=== PATIENT | female | born 1960 | race Caucasian/White ===

== ENCOUNTER 2023-05-22 18:28 | Emergency (ER) | payer BC, SELFPAY ==
[2023-05-22] VITALS (7 sets, daily range): BP systolic 127–154; BP diastolic 78–96; PULSE 67–84; RESP 14–21; TEMP 36.6–36.8; O2SAT 95–98; BMI 25.0
--- NOTE | 2023-05-22 18:26 | ECG_ITS ---
APPROVED REPORT Exam: Resting ECG HR:73 bpm ECG Measurements Heart Rate 73 AXES HI 181 P 52 QRSd 101 QRS -23 QT 365 T 38 QTc 391 Conclusion SINUS RHYTHM LOW QRS VOLTAGE IN PRECORDIAL LEADS [QRS DEFLECTION < 1.0 mV IN CHEST LEADS] POSSIBLE ANTERIOR MYOCARDIAL INFARCTION , PROBABLY OLD [30 ms Q WAVE IN V3/V4, OR R < 0.2 mV IN V4] INFERIOR MYOCARDIAL INFARCTION , PROBABLY OLD [40+ ms Q WAVE AND/OR ST/T ABNORMALITY IN II/aVF] ABNORMAL ECG UNCONFIRMED REPORT Electronically signed by : Jimbo Chong MD 05/24/2023 21:39:09
--- NOTE | 2023-05-22 18:54 | XR_ITS ---
PROCEDURE INFORMATION: Exam: XR Chest Exam date and time: 05/22/2023 6:56 PM Age: 62 years old Clinical indication: Sternal or substernal pain; Additional info: Chest pain TECHNIQUE: Imaging protocol: Radiologic exam of the chest. Views: 1 view. COMPARISON: No relevant prior studies available. FINDINGS: Lungs: There is mild elevation the right hemidiaphragm. The lungs appear clear. No focal areas of consolidation. Pleural spaces: No pleural effusions. Negative for pneumothorax. Heart/Mediastinum: Cardiac silhouette and pulmonary vasculature are within range of normal. Bones/joints: There is no evidence of acute fracture. The thoracic spine demonstrates mild degenerative changes at multiple levels. Mild degenerative changes involve the acromioclavicular joints bilaterally. IMPRESSION: Negative for an acute cardiopulmonary abnormality.
--- NOTE | 2023-05-22 19:00 | PC.NURSE ---
rad at BS for portable xray
[2023-05-22 19:08] LABS: Basophils # 0.1 K/mm3 (0-0.2); Basophils % 0.8 % (0.1-2.0); Eosinophils # 0.1 K/mm3 (0.0-0.4); Hematocrit 47.7 % (37.0-47.0); Hemoglobin 15.5 g/dL (12.2-16.2); Lymphocytes # 1.5 K/mm3 (0.7-4.5); Lymphocytes % 20.9 % (10-50); Mean Corpuscular HGB Conc 32.5 g/dL (31.8-35.4); Mean Corpuscular Hemoglobin 28.9 pg (27.0-31.2); Mean Corpuscular Volume 88.8 fl (81-99); Mean Platelet Volume 8.5 fl (7.4-10.4); Monocytes # 0.5 K/mm3 (0.1-1.0); Monocytes % 6.8 % (1.7-9.3); Neutrophils # 5.1 K/mm3 (1.8-7.8); Neutrophils % 70.4 % (37.0-80.0); Platelet Count 405 K/mm3 (142-424); Red Blood Count 5.37 M/mm3 (4.20-5.40); Red Cell Distribution Width 15.2 % (11.5-17.5); White Blood Count 7.3 K/mm3 (4.8-10.8)
--- NOTE | 2023-05-22 19:10 | PC.NURSE ---
is in the room talking with patient at this time.
[2023-05-22 19:14] LABS: Alanine Aminotransferase 29 U/L (12-78); Albumin Level 4.5 g/dl (3.5-5.0); Albumin/Globulin Ratio 1.4 (1.1-1.8); Alkaline Phosphatase 104 U/L (38-126); Anion Gap 10.7 mEq/L (5-15); Aspartate Amino Transferase 39 U/L (14-36); Bilirubin,Total 0.4 mg/dl (0.2-1.3); Blood Urea Nitrogen 24 mg/dl (7-17); Calcium 9.7 mg/dl (8.4-10.2); Carbon Dioxide 30 mmol/L (22.0-30.0); Chloride 107 mmol/L (98-107); Creatinine Clearance Estimated 63 mL/min (50-200); Estimated Glomerular Filt Rate 56 ml/min (>60); GFR (African American) 68 ML/MIN (>60); Globulin 3.3 g/dL (1.3-3.2); Glucose 115 mg/dl (74-100); Potassium 3.7 mmoL/L (3.5-5.1); Sodium 144 mmol/L (136-145); Total Protein,Serum 7.8 g/dl (6.3-8.2)
--- NOTE | 2023-05-22 19:15 | HMH.EDGENADL ---
Discharge Plan Disposition Chief Complaint: Chest Pain Prescriptions Prescriptions: No Action multivitamin Tablet 1 tab PO DAILY lisinopril-hydrochlorothiazide 20-25 mg tablet 1 tab PO DAILY Patient Comments: TAKE 1 TABLET BY MOUTH EVERY DAY TO IMPROVE BLOOD PRESSURE Referrals Follow up/Referrals: Reinier Wade [Primary Care Provider] - See instructions Juarez Wong MD [Staff Physician] - See instructions Clinical Impressions Clinical Impression: Chest pain Discharge ED Provider: Cleveland Rocha General Adult HPI General Chief complaint: Chest Pain Stated complaint: chest pain Time Seen by Provider: 05/22/23 19:10 Mode of Arrival: Ambulatory Source of Information: Patient Limitations: No Limitations Description of Symptoms (Recalled from ER Triage Doc. by RN): 62 F presents with no current complaints; however, around noon today she experienced a sudden onset of midsternal squeezing to her heart. Patient denies having any other ACS symptoms; however, if she could've got to her phone she would've called 911 because it was pretty bad. Patient states after the 10 minutes she did not have anymore pain and went on with her work day. Patient denies history of cardiac issues. History of Present Illness HPI narrative: Patient is a 62-year-old female presenting with chest pain. She has a history of hypertension but no other medical problems specifically no history of any coronary disease. She was out in the heat today and had 10 minutes of squeezing chest pain without radiation or shortness of breath or diaphoresis that spontaneously resolved she is currently asymptomatic. Her family members made her come in today. Related Data Home Medications Medication Instructions Recorded Confirmed lisinopril 20 1 tab PO DAILY High Blood Pressure 05/22/23 05/22/23 mg-hydrochlorothiazide 25 mg tablet multivitamin 1 tab PO DAILY Supplement 05/22/23 05/22/23 Allergies Allergy/AdvReac Type Severity Reaction Status Date / Time No Known Allergies Allergy Verified 05/22/23 18:42 [facility] Disclaimer: The information contained in this section may have been updated after the patient was seen, as this information can be updated by other users. Medical History (Updated 05/22/23 @ 19:18 by Cleveland Rocha MD) HTN (hypertension) Social History Smoking Status: Never smoker alcohol intake: never current occupational status: other Travel in the last 8 weeks: None ROS Obtained: Yes All systems reviewed & no additional complaints except as documented Physical Exam General General appearance: alert Respiratory Respiratory exam: Present normal lung sounds bilaterally; Absent wheezes Cardiovascular Cardiovascular exam: Present regular rate; Absent tachycardia Neurological Exam Neurological exam: Present alert and oriented X3 Medical Decision Making Maxime Inquiry Pt receiving controlled substance: No Vital Signs: 05/22/23 18:28 05/22/23 19:00 05/22/23 19:14 Temperature 98.3 F Temperature Source Oral Pulse Rate 76 84 Pulse Rate [Left] 80 Respiratory Rate 19 Blood Pressure 150/93 H Blood Pressure [Right Arm] 154/96 H Blood Pressure Mean 112 Blood Pressure Mean [Right Arm] 115 Blood Pressure Source [Right Arm] Automatic Cuff Blood Pressure Position [Right Arm] Sitting 02 Sat by Pulse Oximetry 95 98 Oxygen Delivery Method Room Air Lab Data Lab Results 05/22/23 18:32: WBC 7.3, RBC 5.37, Hgb 15.5, Hct 47.7 H, MCV 88.8, MCH 28.9, MCHC 32.5, RDW 15.2, Plt Count 405, MPV 8.5, Neut % (Auto) 70.4, Lymph % (Auto) 20.9, Camp % (Auto) 6.8, Eos % (Auto) 1.0, Baso % (Auto) 0.8, Neut # (Auto) 5.1, Lymph # (Auto) 1.5, Camp # (Auto) 0.5, Eos # (Auto) 0.1, Baso # (Auto) 0.1 05/22/23 18:32 Orders (Tests/Meds): ORDERS Category Date Time Status CXR --portable [XR chest portable] Stat
[2023-05-22 19:20] LABS: D-Dimer 0.64 ug/mL (0.0-0.5)
[2023-05-22 19:27] LABS: Troponin I < 0.01 ng/ml (0.00-0.034)
--- NOTE | 2023-05-22 19:45 | PC.NURSE ---
Rounded on patient, no concerns voiced at this time.
[2023-05-22 22:16] LABS: Troponin I < 0.01 ng/ml (0.00-0.034)
== END 2023-05-22 22:22 | disposition home or self-care (01) ==
PROVIDERS: Emergency Provider Student in an Organized Health Care Education/Training Program; PCP Family Medicine
DX: R07.9 Chest pain, unspecified (principal); I10 Essential (primary) hypertension
CPT/HCPCS: 71045; 80053; 84484; 85025; 85378; 93005; 99285

== ENCOUNTER → 2023-06-04 12:55 | Outpatient (CLI) | payer BC, SELFPAY ==
--- NOTE | 2023-06-04 | CA_ITS ---
APPROVED REPORT Exam: Exercise Treadmill Technologist: Shaista Bardales, Ht: 5 ft 4 in Wt: 189 lbs BSA: 1.91 m2 HR: 57 bpm BP: 148/88 mmHg Rhythm: SR Medical History Medical History: HTN Medications: Multivitamin,,,,, Lisinopril-Hydrochlorothiazide,,,,, Allergies: No known drug allergies Cardiac Risk Factors: HTN Stress Test Details Test: Carl HR Resting HR: 57 bpm Max Heart Rate (APMHR): 158 bpm Max HR Achieved: 155 bpm Target HR (85% APMHR): 134 bpm % of APMHR: 98 Recovery HR: 77 bpm HR response to stress: Normal HR response to stress BP Resting BP: 148.0/88 mmHg Max BP: 170/93 mmHg Recovery BP: 141.0/95.0 mmHg BP response to stress: Normal blood pressure response to stress. ECG Resting ECG: SR Stress ECG: < 0.[address] depression Arrhythmia: None Recovery ECG: Return to baseline within 3 minutes of recovery Recovery Arrhythmia: None Clinical Exercise duration: 08:32 min Highest Stage Achieved: Exercise capacity: 10.1 METs Overall Exercise Capacity for Age: Average Stress ECG Conclusion The patient was able to exercise for total of 8 minutes, 32 seconds. She achieved 10.1 METS. She has an average exercise capacity compared to age and sex matched peers. She has normal HR and BP response to exercise. MAX HR: 155 % OF PM: 98 MAX BP: 170/93 METS: 10.1 TEST STOPPED DUE TO: LEG FATIGUE PAC, PVC < 0.[address] DEPRESSION CONCLUSION NORMAL EKG RESPONSE TO EXERCISE MYOVIEW IMAGES ARE REPORTED SEPARATELY Test Summary REST . . . . . . . Sitting REST 03:10 0.0 1.2 57 . 148/ 88 . . Stage 1 01:00 10.0 1.7 76 . . . . Stage 1 02:00 10.0 1.7 89 . . . . Stage 1 03:00 10.0 1.7 92 . 150/ 80 . . Stage 2 01:00 12.0 2.5 106 . . . . Stage 2 02:00 12.0 2.5 108 . . . . Stage 2 03:00 12.0 2.5 115 . . . . Stage 3 01:00 14.0 3.4 140 . 160/ 90 . . Stage 3 . . . . . . . Myoview Injected Stage 3 02:00 14.0 3.4 150 . 160/ 90 . . Stage 3 02:32 14.0 3.4 155 . 160/ 90 . Stop exercise at 08:32 RECOVERY 01:00 0.0 0.0 121 . 165/ 94 . . RECOVERY 02:00 0.0 0.0 85 . 165/ 94 . . RECOVERY 03:00 0.0 0.0 84 . 159/ 96 . . RECOVERY 04:00 0.0 0.0 80 . 170/ 93 . . RECOVERY 04:42 0.0 0.0 79 . 141/ 95 . . Electronically signed by : Marychuy Rutledge, 06/05/2023 08:47:29
--- NOTE | 2023-06-04 12:55 | NM_ITS ---
APPROVED REPORT Exam: Nuclear Stress Test Indication: chest pain..palpitations..fatigue Patient Location: Outpatient Stress Tech: Shaista Bardales AR Tech:Afua Vega NANETTECathy RT(R)(N) Ht: 5 ft 7 in Wt: 189 lbs Bra Size: 36dd HR: 57 bpm BP: 148/88 mmHg BSA: 1.97 m2 Rhythm: NSR TID: 1.19 BMI: 29.5 History: chest pain..palpitations..fatigue Procedure: Patient exercised on Carl protocol 8:32 minutes and sec, resting heart rate 57 bpm, resting blood pressure 148/88 mmHg, with exercise maximum heart rate achived was 155 bpm which is 98 % of the maximum predicted heart rate and blood pressure was 170/93 mmHg. Patient denied any complaint of chest pain. Patient has average exercise capacity, achieved 10.1 METs of workload on treadmill, the blood pressure response to exercise was normal. Cardiac Stress and Resting SPECT Images: Cardiac Stress and Resting SPECT images were obtained using technetium 99m Myoview 32.1 mCi stress and 10.24 mCi at rest. Resting and stress imaging in supine position demonstrate a medium sized, mild, fixed perfusion defect in the basal to mid anterior wall. This is no longer visualized when prone stress imaging is performed. Findings are most suggestive of soft tissue artifact. Gated imaging demonstrates normal global and regional LV systolic function. LVEF is calculated at 58%. Conclusion: Soft tissue attenuation is present. No definite fixed or reversible perfusion defects Gated imaging demonstrates normal global and regional LV systolic function. LVEF is calculated at 58%. Electronically signed by : Marychuy Rutledge, 06/05/2023 08:51:06
== END ==
LOC: RAD 12:55
PROVIDERS: PCP Family Medicine; Visit Provider Nurse Practitioner Family
DX: R07.9 Chest pain, unspecified (principal); R42 Dizziness and giddiness; I10 Essential (primary) hypertension; R94.31 Abnormal electrocardiogram [ECG] [EKG]
CPT/HCPCS: 78452; 93017; A9502

== ENCOUNTER → 2023-06-08 12:35 | Outpatient (CLI) | payer BC, SELFPAY ==
--- NOTE | 2023-06-08 12:40 | CT_ITS ---
FINAL REPORT CLINICAL HISTORY: cp/elevated d dimer FINDINGS: CTA CHEST WITH CONTRAST TECHNIQUE: Thin section axial CT with IV contrast supplemented with 3D reconstructed MIP images. FINDINGS: Pulmonary vessels enhance in a normal fashion without evidence of embolic disease. Thoracic aorta is normal in caliber without evidence of aneurysm or dissection. No acute lung disease is present . No pleural or pericardial effusion is seen . No adenopathy or mass lesion is present . IMPRESSION: 1. No evidence of pulmonary embolism. Reviewed, Interpreted and Dictated by Tessa Mccollum MD Transcribed by Brittany Carias Authenticated and [facility]
== END ==
LOC: RAD 12:35
PROVIDERS: PCP Family Medicine; Visit Provider Nurse Practitioner Family
DX: R07.9 Chest pain, unspecified (principal); R42 Dizziness and giddiness; I10 Essential (primary) hypertension; R79.89 Other specified abnormal findings of blood chemistry; R94.31 Abnormal electrocardiogram [ECG] [EKG]
CPT/HCPCS: 71275; Q9967

== ENCOUNTER → 2023-06-14 10:50 | Outpatient (CLI) | payer BC, SELFPAY ==
--- NOTE | 2023-06-14 10:54 | CA_ITS ---
APPROVED REPORT EXAM: Comprehensive 2D, Doppler, and color-flow Echocardiogram Bolt Sorter: Leslye Swan RVT Ht: 5 ft 4 in Wt: 189lbs BSA: 1.91 BP: 130/93 mmHg Indications: CP,ELEVATED D-DIMER,ABN EKG,HTN 2D Dimensions LVOT 2.00 cm (M/F) 1.5-2.5 LA Volume 48.20 mL LA Volume Index 25.24 mL/m2 (M/F) 16-34 M-Mode Dimensions RVDd 3.04 cm (0.9-2.6) LA Diam 3.79 cm (1.9-4.0) LVDd 4.07 cm (3.5-5.7) Ao Diam 2.99 cm (2.0-3.7) LVDs 2.62 cm (3.5-5.7) IVSd 0.84 cm (0.6-1.1) PWd 0.87 cm (0.6-1.1) EF (Teich) 65.60% FS 35.60% EDV (Teich) 72.90 mL TAPSE 2.54 (<1.7) ESV (Teich) 25.10 mL LV Diastology E Decel Time 217.00 (160-240 msec) E/A Ratio 0.9 MED E' 9.80 (< 7 cm/sec) E'/MED E' Ratio 8.63 (>14) LAT E' 7.90 (<10 cm/sec) E/LAT E' Ratio 10.71 (>14) Aortic Valve AO Peak GR. 9.10 mmHg Mitral Valve MV E Max Kaushal. 85.00 (40-130 cm/s) MV A Velocity 95.00 (40-130 cm/s) E/A Ratio 0.89 MV Decel. Time 217.00 (160-240 ms) MV PHT 63.00 ms Pulmonary Valve PV Peak Velocity 79.00 (50-150 cm/s) Tricuspid Valve TR P. Velocity 226.00 cm/s RAP Estimate 10.00 mmHg RVSP 30.40 mmHg Left Ventricle The left ventricle is normal size. The left ventricular systolic function is normal. The left ventricular ejection fraction is within the normal range. There is proximal septal thickening present. There is normal LV segmental wall motion. Transmitral Doppler flow pattern suggests impaired LV relaxation. LVEF is 65%. Right Ventricle The right ventricle is mildly dilated. The right ventricular systolic function is normal. Atria The left atrium size is normal. The right atrium size is normal. There is no Doppler evidence of interatrial shunt. Aortic Valve The aortic valve is trileaflet. The aortic valve opens well. There is no aortic valvular stenosis. Trace aortic regurgitation. Mitral Valve The mitral valve is normal in structure. No evidence of mitral valve stenosis. Trace mitral regurgitation. Tricuspid Valve The tricuspid valve leaflets are thin and pliable. Trace tricuspid regurgitation. RVSP is 20-25 mmHg. Pulmonic Valve The pulmonary valve is normal in structure. Trace pulmonic regurgitation. Great Vessels The aortic root is normal in size. The ascending aorta is normal in size. IVC is normal in size and collapses >50% with inspiration. Pericardium There is no pericardial effusion. Other Information Study Quality: Adequate Conclusion Normal biventricular systolic function. Mild RV dilation. No significant valvular disease. Electronically signed by : Marychuy Rutledge, 06/15/2023 16:43:37
== END ==
LOC: RT 10:50
PROVIDERS: PCP Family Medicine; Visit Provider Nurse Practitioner Family
DX: R07.9 Chest pain, unspecified (principal); R42 Dizziness and giddiness; I10 Essential (primary) hypertension; R94.31 Abnormal electrocardiogram [ECG] [EKG]
CPT/HCPCS: 93306

== ENCOUNTER 2024-11-03 15:42 | Emergency (ER) | payer BC, MEDICAID, SELFPAY ==
--- NOTE | 2024-11-03 16:38 | EXP.UTC ---
Discharge Plan Disposition Patient Disposition: Home, Self-Care Condition: Good Prescriptions Prescriptions: New amoxicillin 875 mg tablet 875 mg PO Q12H Qty: 20 0RF benzonatate 100 mg capsule 100 mg PO TIDP PRN (Reason: Cough) Qty: 30 0RF No Action jijbxhwr-xrtk-npyrn-oreg-capry 100 mg-150 mg- 50 mg-150 mg capsule PO multivitamin Tablet 1 tab PO DAILY lisinopril-hydrochlorothiazide 20-25 mg tablet 1 tab PO DAILY Patient Comments: TAKE 1 TABLET BY MOUTH EVERY DAY TO IMPROVE BLOOD PRESSURE Referrals Follow up/Referrals: Reinier Wade [Primary Care Provider] - See instructions Activity Restrictions/Add. Instructions Additional Instructions/Restrictions: Drink plenty of fluids. Take tylenol or ibuprofen for pain or fever. Take the medications as directed. Follow up with your regular doctor. GO TO THE ER FOR ANY WORSENING SYMPTOMS Clinical Impressions Clinical Impression: Bronchitis, Acute viral syndrome Instructions Patient Instructions: Acute Bronchitis, DI for Acute Bronchitis Print Language Print Language: Bengali Discharge ED Provider: Valente Laurent [facility] General Stated complaint: Body aches,cough Time Seen by Provider: 11/03/24 16:38 Related Data Home Medications ?Medication ?Instructions ?Recorded ?Confirmed lisinopril 20 1 tab PO DAILY High Blood Pressure 05/22/23 11/03/24 mg-hydrochlorothiazide 25 mg tablet multivitamin 1 tab PO DAILY Supplement 05/22/23 06/20/23 turmeric 100 mg-teresa 150 cap PO 05/31/23 06/20/23 mg-olive 50 mg-oreg 150 mg-capryl capsule Previous Rx's ?Medication ?Instructions ?Recorded amoxicillin 875 mg tablet 875 mg PO Q12H #20 tabs 11/03/24 benzonatate 100 mg capsule 100 mg PO TIDP PRN Cough #30 caps 11/03/24 Allergies Allergy/AdvReac Type Severity Reaction Status Date / Time No Known Allergies Allergy Verified 06/20/23 15:50 [facility] Disclaimer: The information contained in this section may have been updated after the patient was seen, as this information can be updated by other users. Medical History (Updated 11/03/24 @ 17:18 by Valente Laurent APRN) Elevated d-dimer Abnormal electrocardiogram [ECG] [EKG] Dizziness Chest pain HTN (hypertension) Social History Smoking Status: Never smoker alcohol intake: never current occupational status: other Travel in the last 8 weeks: None Have you lived/traveled outside [place] in past 30 days?: No Contact w/someone who lives/traveled outside US past 30 days?: No Exposure to someone with infectious disease in past 14 days?: No Do you have a fever (greater than 100.4 F or 38 C)?: No Have you tested positive for COVID-19: No Exposed to someone with COVID-19 in past 14 days?: No Do you have a sore throat?: No Do you have a cough?: Yes Do you have any weakness?: No Do you have any diarrhea?: No Are you experiencing any unusual bleeding?: No Do you have any muscle aches/pain?: Yes Do you have any abdominal pain?: No Are you experiencing loss of taste or smell?: No ROS Obtained: Yes All systems reviewed & no additional complaints except as documented Constitutional Constitutional: Reports poor appetite Eyes Eyes: Reports system reviewed and no additional complaints, except as documented ENT Ears, Nose, Mouth, and Throat: Reports as per HPI Cardiovascular Cardiovascular: Reports system reviewed and no additional complaints, except as documented and Denies chest pain Respiratory Respiratory: Denies shortness of breath, Reports chest congestion, Reports cough, Denies stridor and Denies wheezing Gastrointestinal Gastrointestingal: Reports system reviewed and no additional complaints, except as documented; Denies abdominal pain, diarrhea or vomiting Musculoskeletal Musculoskeletal: Reports system reviewed and no additional complaints, except as documented and Denies arthralgias Integumentary/Breasts Skin/Breast: Reports system reviewed and no additional complaints, except as documented and Denies rash Neurologic Neurologic: Denies paresthesias Allergic/Immunologic Allergic/Immunologic: Denies wheezing Physical Exam General General appearance: alert and in no apparent distress Eye Eye exam: Present normal appearance, PERRL and EOMI ENT ENT exam: Present mucous membranes moist and normal external ear exam Expanded ENT Exam External ear exam: Present normal external inspection TM/Canal exam: Bilateral TM: erythema and bulging Nose exam: Absent sinus tenderness Nasal speculum exam: Bilateral: normal Mouth exam: Present normal external inspection; Absent drooling Teeth exam: Present normal inspection Throat exam: Present tonsillar erythema and tonsillomegaly Neck Neck exam: Present normal inspection, full ROM and trachea midline; Absent tenderness, lymphadenopathy or thyromegaly Chest Chest inspection: Present normal inspection and symmetric chest wall rise; Absent tenderness or rash Respiratory Respiratory exam: Present normal lung sounds bilaterally; Absent respiratory distress, wheezes, stridor or accessory muscle use Cardiovascular Cardiovascular exam: Present regular rate, normal rhythm and normal heart sounds Abdominal Exam Abdominal exam: Present soft; Absent distention, tenderness, guarding, rebound or rigidity Extremities Exam Extremities exam: Present normal inspection, full ROM and normal capillary refill; Absent tenderness or calf tenderness Back Exam Back exam: Present normal inspection and full ROM; Absent tenderness Neurological Exam Neurological exam: Present alert and oriented X3 Psychiatric Psychiatric exam: Present normal affect and normal mood Skin Skin exam: Present warm, dry, intact and normal color Lymphatic Lymphatic Findings: no adenopathy Medical Decision Making Medical Records Medical records reviewed: No I reviewed the patient's medical records. Screening: Per USPSTF and CDC recommendations, given the prevalence of disease in our region, it is our hospital?s policy to screen for HIV and viral Hepatitis for all patients aged 18 and over and those with ongoing risk factors. Maxime Inquiry Pt receiving controlled substance: No Lab Data Lab results reviewed: Yes I reviewed the patient's lab results.
[2024-11-03 16:39] VITALS: BP 166/101; PULSE 83; RESP 95; TEMP 36.7; O2SAT 95; BMI 34.1
[2024-11-03 17:27] VITALS: BP 166/101; PULSE 83; RESP 20; TEMP 36.7
[2024-11-03 17:32] LABS: Coronavirus 19, PCR Not Detected (NotDetected); Influenza A, PCR Not Detected (NotDetected); Influenza B, PCR Not Detected (NotDetected)
[2024-11-03 17:52] LABS: RSV Rapid Ab Screen Negative (Negative)
== END 2024-11-03 17:33 | disposition home or self-care (01) ==
PROVIDERS: Emergency Provider Nurse Practitioner Family; PCP Family Medicine
DX: J20.9 Acute bronchitis, unspecified (principal); B34.9 Viral infection, unspecified; R05.9 Cough, unspecified; R63.8 Other symptoms and signs concerning food and fluid intake
CPT/HCPCS: 87636; 87807; 99212; G0381

== ENCOUNTER 2025-04-30 11:49 | Emergency (ER) | payer BC, MEDICAID, SELFPAY ==
[2025-04-30] VITALS (7 sets, daily range): BP systolic 126–180; BP diastolic 79–100; PULSE 54–67; RESP 14–27; TEMP 36.6–37.1; O2SAT 91–97; BMI 34.7
--- NOTE | 2025-04-30 12:00 | ECG_ITS ---
APPROVED REPORT Exam: Resting ECG HR:60 bpm ECG Measurements Heart Rate 60 AXES NE 165 P 73 QRSd 99 QRS 2 QT 427 T 61 QTc 427 Conclusion SINUS RHYTHM LOW QRS VOLTAGE IN PRECORDIAL LEADS [QRS DEFLECTION < 1.0 mV IN CHEST LEADS] POSSIBLE ANTERIOR MYOCARDIAL INFARCTION , PROBABLY OLD [30 ms Q WAVE IN V3/V4, OR R < 0.2 mV IN V4] BORDERLINE ECG UNCONFIRMED REPORT Electronically signed by : Valente Rocha, 04/30/2025 15:38:39
--- NOTE | 2025-04-30 12:05 | XR_ITS ---
FINAL REPORT CLINICAL HISTORY: upper abd. pain COMPARISON: 05/22/2023 FINDINGS: The heart size is normal. The mediastinum is normal. There is no focal infiltrate or edema. There are no pleural effusions. There is no pneumothorax. There is no osseous abnormality. IMPRESSION: No acute cardiopulmonary process Reviewed, Interpreted and Dictated by Wisam Cleaning MD Transcribed by Shira Sidhu Authenticated and [facility]
[2025-04-30 12:12] LABS: Basophils # 0.1 K/mm3 (0-0.2); Basophils % 0.8 % (0.1-2.0); Eosinophils # 0.1 Kmm3 (0.0-0.4); Eosinophils % 0.8 % (0.1-12.0); Hematocrit 53.2 % (37.0-47.0); Hemoglobin 17.4 g/dL (12.2-16.2); Immature Granulocytes # 0.02 10^3uL; Immature Granulocytes % 0.3 %; Lymphocytes # 1.1 K/mm3 (0.7-4.5); Lymphocytes % 17.1 % (10-50); Mean Corpuscular HGB Conc 32.7 g/dL (31.8-35.4); Mean Corpuscular Hemoglobin 29.9 pg (27.0-31.2); Mean Corpuscular Volume 91.4 fl (81-99); Mean Platelet Volume 9.9 fl (7.4-10.4); Monocytes # 0.4 K/mm3 (0.1-1.0); Monocytes % 6.8 % (1.7-9.3); Neutrophils # 4.8 K/mm3 (1.8-7.8); Neutrophils % 74.2 % (37.0-80.0); Nucleated Red Blood Cells # 0 10^3/uL; Nucleated Red Blood Cells % 0 %; Platelet Count 421 K/mm3 (142-424); Red Blood Count 5.82 M/mm3 (4.20-5.40); Red Cell Distribution Width 16.1 % (11.5-17.5); Red Cell Distribution Width-SD 53.1 fL; White Blood Count 6.4 K/mm3 (4.8-10.8)
--- OUTSIDE RECORDS SUMMARY | 2025-04-30 12:17 | XMS_ITS ---
Author Organization Unknown Medications Medication Instructions Effective Dates (start - stop) Status amlodipine 10 MG Oral Tablet 12-24-11T00:00:00.000+00 :00 - Completed hydrochlorothiazide 25 MG / lisinopril 20 MG Oral Tablet [id number]:00:00.000+0 0 :00 - Completed hydrochlorothiazide 25 MG / lisinopril 20 MG Oral Tablet [id number]:00:00.000+0 0 :00 - Completed hydrochlorothiazide 25 MG / lisinopril 20 MG Oral Tablet [id number]:00:00.000+0 0 :00 - Completed hydrochlorothiazide 25 MG / lisinopril 20 MG Oral Tablet [id number]:00:00.000+0 0 :00 - Completed Patient Care team information Name Category Status Period Participants - - Proposed period not known -
[2025-04-30 12:24] LABS: Albumin Level 4.6 g/dl (3.5-5.0); Chloride 104 mmol/L (98-107); Sodium 139 mmol/L (136-145)
--- NOTE | 2025-04-30 12:24 | CT_ITS ---
FINAL REPORT TECHNIQUE: The patient was injected with IV contrast. Axial images were obtained through the chest in a PE protocol. 3-D reconstruction images were also performed. Individualized dose reduction techniques using automated exposure control or adjustment of the MA and/or KV according to patient's size were employed. CLINICAL HISTORY: Upper ABD pain/CP rating to back COMPARISON: None FINDINGS: Mediastinal vasculature is adequately opacified. No pulmonary artery filling defects are identified to suggest PE. There is no aortic dissection. There is no axillary adenopathy. There is no hilar or mediastinal adenopathy. The heart size is normal. There is no pericardial or pleural effusion. Limited images of the upper abdomen demonstrate a small hiatal hernia. There are mild ground glass opacities noted bilaterally, that may represent mild edema or pneumonitis. IMPRESSION: No pulmonary embolus or dissection. Ground glass opacities are noted bilaterally, that may represent mild edema or pneumonitis. Small hiatal hernia. Reviewed, Interpreted and Dictated by Wisam Cleaning MD Transcribed by Brittany Carias Authenticated and [facility]
--- NOTE | 2025-04-30 12:24 | CT_ITS ---
FINAL REPORT TECHNIQUE: After the administration of intravenous contrast, axial images were obtained through the abdomen and pelvis by computed tomography. The study was performed with techniques to keep radiation dose as low as reasonably achievable, (ALARA). Individual dose reduction techniques using automated exposure control or adjustment of mA and/or kV according to the patient's size were employed. CLINICAL HISTORY: Upper ABD pain/CP radiating to back COMPARISON: None FINDINGS: Abdomen: The lung bases are clear. There is fatty infiltration of the liver, and mild hepatosplenomegaly. The spleen measures 14 cm in the craniocaudal dimension, and the liver measures 19 cm in the craniocaudal dimension. The gallbladder is present. The spleen, pancreas, adrenals and kidneys appear unremarkable. The aorta is normal in caliber. There is no free fluid or adenopathy. Pelvis: The appendix is air-filled, and at the upper limits of normal in size. The urinary bladder is unremarkable. The uterus is bulky in appearance, with lobular/nodular masses in the uterus measuring up to 4 cm in size, likely representing fibroids. There is no free fluid or adenopathy. IMPRESSION: Mild hepatosplenomegaly, with fatty infiltration of the liver. Bulky uterus with multiple parenchymal masses, likely representing fibroids. Reviewed, Interpreted and Dictated by Wisam Cleaning MD Transcribed by Brittany Carias Authenticated and . [facility]
--- NOTE | 2025-04-30 12:25 | ED_ITS ---
<Statement entered by Cleveland Rocha MD - 04/30/25 15:32> I was consulted by the CASIE, and we discussed the complexity of the problems being addressed. I approved the treatment and management plan for this patient's care in the emergency department, thus performing a substantive portion of the medical decision making. Cleveland Rocha MD, ZULEIMA, FACEP Discharge Plan Disposition Patient Disposition: Home, Self-Care Condition: Good Prescriptions Prescriptions: No Action uohvtnkg-pkre-imhjw-oreg-capry 100 mg-150 mg- 50 mg-150 mg capsule PO multivitamin Tablet 1 tab PO DAILY lisinopril-hydrochlorothiazide 20-25 mg tablet 1 tab PO DAILY Patient Comments: TAKE 1 TABLET BY MOUTH EVERY DAY TO IMPROVE BLOOD PRESSURE amoxicillin 875 mg tablet 875 mg PO Q12H Qty: 20 0RF benzonatate 100 mg capsule 100 mg PO TIDP PRN (Reason: Cough) Qty: 30 0RF Referrals Follow up/Referrals: Reinier Wade [Primary Care Provider, Medical] - See instructions Nimo Leslie DO [Staff Physician, FLOW MANAGER] - See instructions Activity Restrictions/Add. Instructions Additional Instructions/Restrictions: Please return to the emergency department with any worsening signs or symptoms, utilize ibuprofen Tylenol and other anti-inflammatory medication as needed for symptomatic relief. Please follow-up with your women's health provider/primary care doctor regarding the incidental findings of uterine fibroids. Clinical Impressions Clinical Impression: Abdominal pain Chest pain Qualifiers: Chest pain type: unspecified Qualified Code(s): R07.9 - Chest pain, unspecified Instructions Patient Instructions: DI for Acute Abdominal Pain, DI for Atypical Chest Pain Print Language Print Language: Albanian Discharge ED Provider: Cleveland Rocha General Adult HPI General Chief complaint: Abdominal Pain Stated complaint: abd pain, going through shoulder blades x 2 weeks Time Seen by Provider: 04/30/25 12:09 Mode of Arrival: Ambulatory Source of Information: Patient Description of Symptoms (Recalled from ER Triage Doc. by RN): pt to the ED with upper adbominal pain that radiates to her middle back. pt reports this has been going on intermittenly for 2 weeks but is worse today. pt describes it as a stabbing pain and rates it as a 7 at this time History of Present Illness HPI narrative: 64-year-old female presents to the emergency department with upper abdominal pain,/chest pain that will radiate in between my shoulder blades , for the last 2 weeks, describes a gradually worsening, she denies any fever or chills, denies any shortness of breath currently, admits to cough, denies any nausea, no vomiting no constipation no diarrhea, no urinary type symptomatology, no melena, no hematochezia, no hematemesis, no hemoptysis, denies any trauma per history, no bending lifting twisting injury, patient is a non-smoker, denies any alcohol or drug use, other past medical history is consistent with hypertension otherwise unremarkable. Initial triage vitals unremarkable. Onset (ago): week(s) Related Data Home Medications ?Medication ?Instructions ?Recorded ?Confirmed lisinopril 20 1 tab PO DAILY High Blood Pr essure 05/22/23 11/03/24 mg-hydrochlorothiazide 25 mg tablet multivitamin 1 tab PO DAILY Supplement 06/20/23 turmeric 100 mg-teresa 150 cap PO 05/31/23 06/20/23 mg-olive 50 mg-oreg 150 mg-capryl capsule Previous Rx's ?Medication ?Instructions ?Recorded amoxicillin 875 mg tablet 875 mg PO Q12H #20 tabs 10/13 02/02 benzonatate 100 mg capsule 100 mg PO TIDP PRN Cough #3 0 caps 11/03/24 Allergies Allergy/AdvReac Type Severity Reaction Status Date / Time No Known Allergies Allergy Verified 06/20/23 15:50 [facility] Disclaimer: The information contained in this section may have been updated after the patient was seen, as this information can be updated by other users. Medical History (Updated 04/30/25 @ 14:11 by KARLA Mckay) Elevated d-dimer Abnormal electrocardiogram [ECG] [EKG] Dizziness Chest pain HTN (hypertension) Social History Smoking Status: Never smoker alcohol intake: never current occupational status: other Travel in the last 8 weeks?: None Have you lived/traveled outside [place] in past 30 days?: No Contact w/someone who lives/traveled outside [place] past 30 days?: No Exposure to someone with infectious disease in past 14 days?: No Do you have a fever (greater than 100.4 F or 38 C)?: No Have you tested positive for COVID-19?: No Exposed to someone with COVID-19 in past 14 days?: No Do you have a sore throat?: No Do you have a cough?: No Do you have any weakness?: No Do you have any diarrhea?: No Are you experiencing any unusual bleeding?: No Do you have any muscle aches/pain?: No Do you have any abdominal pain?: No Are you experiencing loss of taste or smell?: No ROS Obtained: Yes All systems reviewed & no additional complaints except as documented Physical Exam General General appearance: alert and in no apparent distress Head Head exam: atraumatic and normocephalic Eye Eye exam: Present PERRL and EOMI ENT ENT exam: Present mucous membranes moist Neck Neck exam: Present normal inspection Chest Chest inspection: Present normal inspection, symmetric chest wall rise, tenderness and other (Mild tenderness over the chest wall) Respiratory Respiratory exam: Present normal lung sounds bilaterally; Absent respiratory distress, wheezes or stridor Cardiovascular Cardiovascular exam: Present regular rate and normal rhythm Abdominal Exam Abdominal exam: Present soft and tenderness; Absent guarding, rebound or rigidity Abdominal tenderness: Present RUQ, RLQ, epigastrium and mild Comment: Mild diffuse abdominal tenderness to palpation to the RLQ RUQ and epigastrium, faintly positive Lopez sign. Extremities Exam Extremities exam: Present normal inspection Neurological Exam Neurological exam: Present alert and oriented X3 Psychiatric Psychiatric exam: Present normal affect Skin Skin exam: Present warm and dry Medical Decision Making Medical Records Medical records reviewed: Yes I reviewed the patient's medical records. Screening: Per USPSTF and CDC recommendations, given the prevalence of disease in our region, it is our hospital?s policy to screen for HIV and viral Hepatitis for all patients aged 18 and over and those with ongoing risk factors. Maxime Inquiry Pt receiving controlled substance: No Maxime was queried for this patient: No Vital Signs: 04/30/25 11:56 04/30/25 11:57 04/30/25 13:01 Temperature 97.9 F Temperature Source Oral Pulse Rate 67 59 L Pulse Rate [Left Radial] 60 Respiratory Rate 17 19 Blood Pressure 180/100 H 149/92 H Blood Pressure [Right Arm] 180/100 H Blood Pressure Mean [Right Arm] 126 Blood Pressure Source [Right Arm] Automatic Cuff Blood Pressure Position [Right Arm] Sitting 02 Sat by Pulse Oximetry 97 93 L 91 L Oxygen Delivery Method Room Air Lab Data Lab results reviewed: Yes I reviewed the patient's lab results. Lab Results 04/30/25 12:02: WBC 6.4, RBC 5.82 H, Hgb 17.4 H, Hct 53.2 H, MCV 91.4, MCH 29.9, MCHC 32.7, RDW 16.1, Plt Count 421, MPV 9.9, Neut % (Auto) 74.2, Lymph % (Auto) 17.1, Taliaferro % (Auto) 6.8, Eos % (Auto) 0.8, Baso % (Auto) 0.8, Neut # (Auto) 4.8, Lymph # (Auto) 1.1, Taliaferro # (Auto) 0.4, Eos # (Auto) 0.1, Baso # (Auto) 0.1, Sodium 139, Potassium 4.0, Chloride 104, Carbon Dioxide 31 H, Anion Gap 8.0, BUN 18 H, Creatinine 0.90, Estimated Creat Clear 77, Estimated GFR 63, Est GFR ( Amer) 76, Glucose 89, Calcium 9.9, Total Bilirubin 0.7, AST 31, ALT 19, Alkaline Phosphatase 97, Troponin I < 0.01, NT-Pro-B Natriuret Pep 95.8, Total Protein 8.1, Albumin 4.6, Globulin 3.5 H, Albumin/Globulin Ratio 1.3, Lipase 127 04/30/25 12:43: Lactate 0.9 04/30/25 12:02 04/30/25 12:02 Orders (Tests/Meds): ED MEDICATIONS Discontinued Medications Generic Name Dose Route Start Last Admin Trade Name Almas PRN Reason Stop Dose Admin Iopamidol 70 ml 04/30/25 12:55 04/30/25 12:56 Iopamidol-370 (76%);100ml Bottle IV 04/30/25 12:56 70 ml ONCE ONE Administration Morphine Sulfate 4 mg 04/30/25 12:26 04/30/25 12:40 Morphine 4mg/Ml Syringe IV 04/30/25 12:27 4 mg ONCE ONE Administration Ondansetron HCl 4 mg 04/30/25 12:26 04/30/25 12:40 Ondansetron 4mg/2ml Vial IV 04/30/25 12:27 4 mg ONCE ONE Administration Sodium Chloride 10 ml 04/30/25 12:55 04/30/25 12:56 Sodium Chloride 0.9% 10ml Syr (Rad Only) IV 04/30/25 12:56 10 ml ONCE ONE Administration Sodium Chloride 50 ml 04/30/25 12:55 04/30/25 12:56 0.9 % Sodium Chloride 50 Ml Vial IV 04/30/25 12:56 50 ml ONCE ONE Administration ORDERS Category Date Time Status CT abdomen pelvis w con Stat Cat Scan 04/30/25 12:[address] angio chest PE protocol Stat Cat Scan 04/30/25 12:24 Taken XR chest portable Stat Exams 04/30/25 12:05 Completed Complete Blood Count Auto Diff Stat Lab 04/30/25 12:02 Completed Comprehensive Metabolic Panel Stat Lab 04/30/25 12:02 Completed Lactic Acid Stat Lab 04/30/25 12:43 Completed Lipase Stat Lab 04/30/25 12:02 Completed NT Pro Brain Natriuretic Pep. Stat Lab 04/30/25 12:02 Completed Troponin I Q3H Lab 04/30/25 15:15 Ordered Troponin I Q3H Lab 04/30/25 18:15 Ordered Troponin I Stat Lab 04/30/25 12:02 Completed Medical Decision Narrative: 64-year-old female presents to the emergency department with abdominal pain/chest pain, for the last 2 weeks see HPI for detailed past medical history differential diagnosis to include but not limited to pancreatitis, GERD, gastritis, anxiety type reaction, ACS, panic attack, cardiac arrhythmia, electrolyte disturbance, PE, cholelithiasis, cholecystitis, choledocholithiasis, ileitis, colitis, bowel obstruction, pneumonia, pneumothorax among others. Discussed patient case with attending physician Dr. Rocha Will obtain EKG, basic laboratory studies lactic acid level lipase level proBNP troponin, CXR, CTA chest with and without contrast PE protocol, CT and pelvis with contrast, will give 4 mg IV morphine for pain and 4 mg IV Zofran for nausea. CBC unremarkable, no leukocytosis, some mild hemoconcentration noted. CMP unremarkable Troponin within normal limits at less than 0.01. CMP unremarkable, troponin is less than 0.01, proBNP within normal is lipase within normal limits, lactate within normal limits I reviewed the patient's chest x-ray along with corresponding radiological report no acute cardiopulmonary process I reviewed the patient's CTA chest with and without contrast along the corresponding radiologic report, no pulmonary embolus or dissection, groundglass opacities noted bilaterally may resent mild edema or pneumonitis, small hiatal hernia. I reviewed the patient's CT abdomen pelvis with contrast along the corresponding radiologic report, mild hepatosplenomegaly with fatty infiltration of the liver, bulky uterus with multiple parenchymal masslike represent fibroids. I discussed results with the patient at the bedside, patient may be having some musculoskeletal chest/back pain, or gastritis/GERD due to small hiatal hernia, patient would need to follow-up with FLOW MANAGER/women's health provider regarding uterine fibroid incidental finding, could be the cause of her lower abdominal pain at times, patient has remained hemodynamically stable throughout her time in the emergency department. Patient will follow-up with PCP women's health provider as directed. Patient will continue take all medication as prescribed. I did offer other anti-inflammatory/analgesia to include muscle relaxers, she denied at this time would like to pursue regular at home/report of care/treatment. I think this appropriate. Patient was given strict return precautions. Critical Care Critical Care Time Critical Care Time: No
[2025-04-30 12:27] LABS: Alanine Aminotransferase 19 U/L (12-78); Albumin/Globulin Ratio 1.3 (1.1-1.8); Alkaline Phosphatase 97 U/L (38-126); Aspartate Amino Transferase 31 U/L (14-36); Bilirubin,Total 0.7 mg/dl (0.2-1.3); Blood Urea Nitrogen 18 mg/dl (7-17); Calcium 9.9 mg/dl (8.4-10.2); Carbon Dioxide 31 mmol/L (22.0-30.0); Creatinine Clearance Estimated 77 mL/min (50-200); Estimated Glomerular Filt Rate 63 ml/min (>60); GFR (African American) 76 ML/MIN (>60); Globulin 3.5 g/dL (1.3-3.2); Glucose 89 mg/dl (74-100); Total Protein,Serum 8.1 g/dl (6.3-8.2)
[2025-04-30] MEDS: ONDANSETRON 4MG/2ML VIAL 4 MG IV (12:40)
[2025-04-30] MEDS: MORPHINE 4MG/ML SYRINGE 4 MG IV (12:40)
[2025-04-30 12:42] LABS: Lipase 127 U/L (23-300)
[2025-04-30 12:45] LABS: Troponin I < 0.01 ng/ml (0.00-0.034)
[2025-04-30 12:52] LABS: NT Pro Brain Natriuretic Pep. 95.8 pg/mL (0-125)
[2025-04-30 12:56] LABS: Lactic Acid 0.9 mmol/L (0.7-2.1)
[2025-04-30] MEDS: SODIUM CHLORIDE 0.9% 10ML SYR (RAD ONLY) 10 ML IV (12:56)
[2025-04-30] MEDS: IOPAMIDOL-370 (76%);100ML BOTTLE 70 ML IV (12:56)
[2025-04-30] MEDS: 0.9 % SODIUM CHLORIDE 50 ML VIAL IV (12:56)
== END 2025-04-30 14:18 | disposition home or self-care (01) ==
PROVIDERS: Physician Assistant; Emergency Provider Student in an Organized Health Care Education/Training Program; PCP Family Medicine
DX: R10.10 Upper abdominal pain, unspecified (principal); R07.89 Other chest pain; I10 Essential (primary) hypertension
CPT/HCPCS: 71045; 71275; 74177; 80053; 83605; 83690; 83880; 84484; 85025; 93005; 96374; 96375; 99285; J2270; J2405; Q9967